=== PATIENT | male | born 1965 | race Hispanic/Latino ===

== ENCOUNTER 2017-10-07 12:11 | Emergency (ER) | payer OTHER ==
[2017-10-07] MEDS ORDERED: DILAUDID ONE (12:18)
[2017-10-07] MEDS ORDERED: TORADOL ONE (12:18)
[2017-10-07] MEDS ORDERED: TORADOL IV ONE (12:21)
[2017-10-07] MEDS ORDERED: DILAUDID IV ONE (12:21)
[2017-10-07 12:30] VITALS: BP 133/84
--- NOTE | 2017-10-07 13:17 | Emergency Department Report ---
HPI - General Chief Complaint: Back Pain/Injury Time Seen by Provider: 10/07/17 12:54 - HPI HPI: Seth Clemons The patient is a 52-year-old male presenting with chief complaint of left flank pain. Patient states that 10:00 this morning he developed pain in his left flank associated with hematuria. Patient has a history of kidney stones in the past and states the pain felt the same. Patient denies nausea/vomiting, fever or dysuria. When the patient arrived to the ED he had a pain score of 10/10. Patient received analgesics prior to my evaluation and currently his pain is 0/ 10 Location: Left flank Duration: Constant since 10:00 Quality: Like kidney stone Severity: Currently 0/10 Modifying factors: [see above] Context: [see above] Mode of transportation: [not driving] ED Past Medical Hx - Past Medical History Previous Medical History?: Yes Hx Kidney Stones: Yes - Surgical History Past Surgical History?: No - Family History Family history: no significant - Social History Smoking Status: Current Every Day Smoker (1/2 pack per day) Substance Use Type: Alcohol (occasional), Marijuana - Medications Home Medications: Home Medications Medication Instructions Recorded Confirmed Last Taken Type Ketorolac [Toradol] 10 mg PO Q6H PRN #16 tablet 10/07/17 Unknown Rx Tamsulosin [Flomax] 0.4 mg PO QDAY #3 cap 10/07/17 Unknown Rx oxyCODONE /ACETAMINOPHEN [Percocet 1 - 2 tab PO Q6HR PRN #14 tablet 10/07/17 Unknown Rx 5/325] ED Review of Systems ROS: Stated complaint: POSS KIDNEY STONE Other details as noted in HPI Constitutional: denies: fever Gastrointestinal: denies: nausea, vomiting Genitourinary: hematuria. denies: dysuria Musculoskeletal: back pain Physical Exam - Physical Exam Vital Signs: Vital Signs 10/07/17 12:16 Temperature 97.9 F Pulse Rate 88 Respiratory 18 Rate Blood Pressure 133/84 O2 Sat by Pulse 98 Oximetry Physical Exam: GENERAL: The patient is well-developed well-nourished male lying on stretcher not appearing to be in acute distress. [] HEENT: Normocephalic. Atraumatic. Extraocular motions are intact. Patient has moist mucous membranes. NECK: Supple. Trachea midline CHEST/LUNGS: Clear to auscultation. There is no respiratory distress noted. HEART/CARDIOVASCULAR: Regular. There is no tachycardia. There is no gallop rub or murmur. ABDOMEN: Abdomen is soft, nontender. Patient has normal bowel sounds. There is no abdominal distention. SKIN: There is no rash. There is no edema. There is no diaphoresis. NEURO: The patient is awake, alert, and oriented. The patient is cooperative. The patient has normal speech MUSCULOSKELETAL: There is no CVA tenderness. There is no evidence of acute injury. ED Course Vital Signs 10/07/17 12:16 Temperature 97.9 F Pulse Rate 88 Respiratory 18 Rate Blood Pressure 133/84 O2 Sat by Pulse 98 Oximetry ED Medical Decision Making - Radiology Data Radiology results: report reviewed (CT abdomen and pelvis), image reviewed (CT abdomen and pelvis) CT ABDOMEN PELVIS WITHOUT CONTRAST: HISTORY: Left flank pain. COMPARISON: none. TECHNIQUE: Helical CT in 1.25mm intervals without IV contrast. Sagittal and coronal reconstructions. FINDINGS: Lung bases: Minimal mucous plugging in the infiltration is noted at the left lung base. Liver: Normal. Biliary system: Normal. Pancreas: Normal. Spleen: Normal. Kidneys/ureters/bladder: There are scattered bilateral punctate renal calyceal stones. There is minimal left hydronephrosis. A 3 mm calculus is identified along the intramural portion of the left UVJ. The right ureter and bladder are unremarkable. Adrenal glands: Normal. Aorta: Normal. Intestines: Normal. Appendix: Normal. Pelvic viscera: Normal. Ascites: None. Adenopathy: None. Musculoskeletal: Mild lumbar spondylosis. No acute fracture or suspicious bone lesion. IMPRESSION: Bilateral renal calyceal stones. 3 mm stone at the left UVJ, mildly obstructing. Transcribed By: TTR Dictated By: TONY ERVIN JR, MD Electronically Authenticated By: TONY ERVIN JR, MD Signed Date/Time: 10/07/171338 DD/ 36 TD/TT: 10/07/171338 - Differential Diagnosis renal colic, Critical care attestation.: If time is entered above; I have spent that time in minutes in the direct care of this critically ill patient, excluding procedure time. ED Disposition Clinical Impression: Renal colic on left side, Acute left flank pain Disposition: TO HOME OR SELFCARE Is pt being admited?: No Does the pt Need Aspirin: No Condition: Stable Instructions: Renal Colic (ED) Additional Instructions: Return to the emergency department immediately should you develop worsening symptoms, fever, inability to tolerate food or liquid or any other concerns. Prescriptions: Ketorolac [Toradol] 10 mg PO Q6H PRN #16 tablet PRN Reason: Pain oxyCODONE /ACETAMINOPHEN [Percocet 5/325] 1 - 2 tab PO Q6HR PRN #14 tablet PRN Reason: Pain Tamsulosin [Flomax] 0.4 mg PO QDAY #3 cap Referrals: ABIODUN ZHU MD [Primary Care Provider] - 3-5 Days JONAH MELÉNDEZ MD [Staff Physician] - 3-5 Days (Dr. Meléndez is a urologist. Please follow up in for further evaluation) Time of Disposition: 13:52
[2017-10-07 13:44] LABS: Bilirubin,Urine NEG (Negative); Blood,Urine MOD (Negative); Color,Urine Amber (Yellow); Mucus,Urine 3+ /HPF; Nitrite,Urine NEG (Negative)
--- NOTE | 2017-10-07 13:45 | Cat Scan Report ---
CT ABDOMEN PELVIS WITHOUT CONTRAST: HISTORY: Left flank pain. COMPARISON: none. TECHNIQUE: Helical CT in 1.25mm intervals without IV contrast. Sagittal and coronal reconstructions. FINDINGS: Lung bases: Minimal mucous plugging in the infiltration is noted at the left lung base. Liver: Normal. Biliary system: Normal. Pancreas: Normal. Spleen: Normal. Kidneys/ureters/bladder: There are scattered bilateral punctate renal calyceal stones. There is minimal left hydronephrosis. A 3 mm calculus is identified along the intramural portion of the left UVJ. The right ureter and bladder are unremarkable. Adrenal glands: Normal. Aorta: Normal. Intestines: Normal. Appendix: Normal. Pelvic viscera: Normal. Ascites: None. Adenopathy: None. Musculoskeletal: Mild lumbar spondylosis. No acute fracture or suspicious bone lesion. IMPRESSION: Bilateral renal calyceal stones. 3 mm stone at the left UVJ, mildly obstructing.
== END 2017-10-07 13:58 | disposition home or self-care (01) ==
LOC: ED 12:11
DX: N20.0 Calculus of kidney (principal); F17.200 Nicotine dependence, unspecified, uncomplicated; F12.10 Cannabis abuse, uncomplicated
CPT/HCPCS: 74176; 81001; 96374; 96375; 99284; J1170; J1885